=== PATIENT | female | born 1975 | race Caucasian/White ===

== ENCOUNTER → 2023-09-08 16:20 | Outpatient (REF) | payer OTHER, SELFPAY | LOC: HWRAD 16:20 | PROVIDERS: ATTENDING PHYSICIAN Nurse Practitioner | DX: M25.551 Pain in right hip (principal) | CPT/HCPCS: 73502 ==

== ENCOUNTER → 2023-09-28 17:23 | Outpatient (REF) | payer OTHER, SELFPAY | LOC: MRI 17:23 | PROVIDERS: ATTENDING PHYSICIAN Nurse Practitioner | DX: M79.89 Other specified soft tissue disorders (principal); M89.8X5 Other specified disorders of bone, thigh | CPT/HCPCS: 73723; A9575 ==

== ENCOUNTER → 2024-02-22 15:56 | Outpatient (REF) | payer OTHER, SELFPAY | LOC: HWWDC 15:56 | PROVIDERS: ATTENDING PHYSICIAN Nurse Practitioner | DX: Z12.31 Encounter for screening mammogram for malignant neoplasm of breast (principal) | CPT/HCPCS: 77063; 77067 ==

== ENCOUNTER → 2024-12-26 08:51 | Outpatient (REF) | payer OTHER, SELFPAY | LOC: HWRCS 08:51 | PROVIDERS: ATTENDING PHYSICIAN Nuclear Medicine Nuclear Cardiology | DX: I10 Essential (primary) hypertension (principal); R06.02 Shortness of breath; Z82.49 Family history of ischemic heart disease and other diseases of the circulatory system; E78.1 Pure hyperglyceridemia; R73.03 Prediabetes | CPT/HCPCS: 93306 ==

== ENCOUNTER → 2025-05-01 07:52 | Outpatient (REF) | payer OTHER, SELFPAY | LOC: HWWDC 07:52 | PROVIDERS: ATTENDING PHYSICIAN Nurse Practitioner Adult Health | DX: Z12.31 Encounter for screening mammogram for malignant neoplasm of breast (principal) | CPT/HCPCS: 77063; 77067 ==